=== PATIENT | female | born 1955 | race Caucasian/White ===

== ENCOUNTER 2024-02-18 11:02 | Inpatient (IN) | payer MEDICARE ==
[~2024-02-18] VITALS: Ht 167.6 cm; Wt 60.4 kg
[~2024-02-18 11:02] MED LIST: ALBUTEROL0.63 MG/3 NEB; AMLODIPINE BESY10 MG PO; ATENOLOL50 MG PO; ONDANSETRON ODT8 MG PO; VENLAFAXINE HCL75 MG PO
[2024-02-18 11:43] LABS: BASOPHILS % 0.3 % (0.0-1.0); EOSINOPHILS # (AUTO) 0.1 (0.0-0.4); EOSINOPHILS % 1.1 % (0.0-6.0); HEMATOCRIT 50.7 % (34.2-44.1); HEMOGLOBIN 16.4 g/dL (12.0-16.0); LYMPHOCYTES # (AUTO) 0.9 (1.0-3.2); LYMPHOCYTES % 11.4 % (18.0-39.1); MEAN CORPUSCULAR HEMOGLOBIN 30.4 pg (28-32); MEAN CORPUSCULAR HGB CONC 32.3 g/dL (31-35); MEAN CORPUSCULAR VOLUME 94.1 fL (81-99); MONOCYTES # (AUTO) 0.5 (0.2-0.8); MONOCYTES % 6.4 % (4.4-11.3); NEUTROPHILS # (AUTO) 6.1 (2.1-6.9); NEUTROPHILS % 80.4 % (38.7-80.0); PLATELET COUNT 152 x10e3/uL (140-360); RED BLOOD COUNT 5.39 x10e6/uL (3.6-5.1); RED CELL DISTRIBUTION WIDTH 14.5 % (11.7-14.4); WHITE BLOOD COUNT 7.52 x10e3/uL (4.8-10.8)
[2024-02-18] MEDS ORDERED: FENTANYL CITRATE/PF 100MCG/2 ML INJ ONE (11:47)
[2024-02-18 12:14] LABS: ANION GAP 17.3 mmol/L (8-16); CALCIUM 9.6 mg/dL (8.4-10.2); CREATININE, SERUM 0.98 mg/dL (0.57-1.11)
[2024-02-18 12:17] LABS: POTASSIUM 3.3 mmol/L (3.5-5.1)
[2024-02-18] MEDS ORDERED: SEVOFLURANE INHAL SOLN 250 ML PEN BTL ONE (12:20)
[2024-02-18] MEDS ORDERED: EPINEPHRINE HCL 1:1000 1ML 1 MG/ML AMP ONE (12:20)
[2024-02-18] MEDS ORDERED: ONDANSETRON HCL INJ 2MG/ML 2ML 2 MG/ML VIAL ONE (12:20)
[2024-02-18] MEDS ORDERED: EPHEDRINE SULFATE INJ 50 MG/ML VIAL ONE (12:20)
[2024-02-18] MEDS ORDERED: ALBUTEROL 90 MCG/ACT INHALER INH ONE (12:20)
[2024-02-18] MEDS ORDERED: PROPOFOL IV EMULSION 10 MG/ML 20 ML VIAL ONE ×2 (12:20→13:24)
[2024-02-18] MEDS ORDERED: DEXAMETHASONE SOD PHOS INJ 4 MG/ML SDV ONE (12:20)
[2024-02-18] MEDS ORDERED: LIDOCAINE HCL 2% LOCAL INJ 5 ML SDV VIAL INJ ONE (12:20)
[2024-02-18] MEDS: CEFAZOLIN SODIUM 2 GM ONE (12:31)
[2024-02-18] MEDS ORDERED: BUPIVACAINE HCL 0.5% INJ 30 ML VIAL INJ ONE (13:21)
[2024-02-18] MEDS ORDERED: HEPARIN SOD (PORCINE) 1000 UNIT/ML SDV ONE (13:21)
[2024-02-18] MEDS ORDERED: SODIUM CHLORIDE 0.9% 100 ML ONE (13:21)
[2024-02-18] MEDS ORDERED: KETAMINE HCL INJ 50 MG/ML 10 ML VIAL ONE (13:24)
[2024-02-18] MEDS ORDERED: ULTRAM 50MG50 MG PO (14:43)
[2024-02-18] MEDS: FENTANYL CITRATE/PF 100MCG/2 ML INJ ONE (15:53)
[2024-02-18] MEDS ORDERED: ALBUTEROL SULF 0.083% NEB SOLN 3 ML NEB NEB PRN (16:45)
[2024-02-18] MEDS ORDERED: ONDANSETRON HCL 4 MG ORAL DISINTEGRATING TAB PO SCH (16:45)
[2024-02-18] MEDS: TRAMADOL HCL 50 MG TAB PO SCH (17:30)
[2024-02-18 19:30] VITALS: BP 148/82; PULSE 91; RESP 12; TEMP 98; O2SAT 97
[2024-02-18 19:50] VITALS: BP 148/82; PULSE 91; RESP 12; TEMP 98; O2SAT 97
[2024-02-18 20:00] VITALS: BP 148/82; PULSE 91; RESP 12; TEMP 98; O2SAT 97
[2024-02-18] MEDS ORDERED: HYDRALAZINE HCL 20 MG/ML VIAL IV PRN (22:30)
[2024-02-18] MEDS ORDERED: ONDANSETRON HCL INJ 2MG/ML 2ML 2 MG/ML VIAL IV PRN (22:30)
[2024-02-18] MEDS ORDERED: DOCUSATE SODIUM 100 MG CAP PO PRN (22:30)
[2024-02-18] MEDS ORDERED: MAGNESIUM/ALUMINUM/SIMETHICONE 30 ML UDC PO PRN (22:30)
[2024-02-19] VITALS (12 sets, daily range): BP systolic 119–151; BP diastolic 67–96; PULSE 75–96; RESP 16–19; TEMP 97.6–98.3; O2SAT 92–100
[2024-02-19] MEDS: POTASSIUM CHLORIDE 20 MEQ TAB CR PO STA (01:21)
[2024-02-19] MEDS: MAGNESIUM OXIDE 400 MG TAB PO ONE (01:21)
[2024-02-19] MEDS: ATENOLOL 50 MG TAB PO ONE (01:22)
[2024-02-19] MEDS: METHYLPREDNISOLONE SOD SUCC 40 MG/ML VIAL 1ML IV ONE (01:22)
[2024-02-19 07:03] LABS: MAGNESIUM 2.3 MG/DL (1.3-2.1)
[2024-02-19 07:24] LABS: THYROID STIMULATING HORMONE 30.846 uIU/mL (0.350-4.940)
[2024-02-19] MEDS: MULTIVITAMINS/MINERALS TAB PO SCH (09:33)
[2024-02-19] MEDS: VENLAFAXINE HCL 75 MG TAB PO SCH (09:33)
[2024-02-19] MEDS: AMLODIPINE BESYLATE 10 MG TAB PO SCH (09:34)
[2024-02-19] MEDS: ATENOLOL 50 MG TAB PO SCH (09:35)
[2024-02-19] MEDS: IPRATROPIUM BROMIDE 0.02% 2.5 ML NEB NEB SCH (09:52)
[2024-02-19] MEDS ORDERED: SODIUM CHLORIDE 0.9% 100 ML ONE (13:07)
[2024-02-19] MEDS ORDERED: IOPAMIDOL 370 MG/ML 100 ML INFUS..BTL INJ ONE (13:08)
[2024-02-19] MEDS: ALBUTEROL SULF 0.083% NEB SOLN 3 ML NEB NEB PRN (19:35)
[2024-02-20] VITALS (11 sets, daily range): BP systolic 109–143; BP diastolic 74–86; PULSE 74–93; RESP 16–20; TEMP 97.6–98.2; O2SAT 97–100
[2024-02-20] MEDS: ACETAMINOPHEN 325 MG TAB PO PRN (05:14)
[2024-02-20 06:13] LABS: T3 UPTAKE 24.42 % (22.5-37.0); THYROID STIMULATING HORMONE 65.177 uIU/mL (0.350-4.940)
[2024-02-20 06:17] LABS: FREE THYROXINE INDEX 0.2222195 (1.4-3.8); T4 (THYROXINE) < 0.91 ug/dL (4.5-10.9)
[2024-02-20] MEDS: LACTULOSE SYRUP 20 GM/30 ML UDC PO ONE (16:36)
[2024-02-20] MEDS: DOCUSATE SODIUM 100 MG CAP PO SCH (16:36)
[2024-02-20] MEDS: FUROSEMIDE INJ 10 MG/ML 4 ML VIAL IV ONE (16:36)
[2024-02-20] MEDS: LEVOTHYROXINE SODIUM 75 MCG TAB PO ONE (16:39)
[2024-02-21] VITALS (11 sets, daily range): BP systolic 91–139; BP diastolic 64–87; PULSE 61–104; RESP 16–20; TEMP 97.9–98.1; O2SAT 97–100
[2024-02-21] MEDS: TRAMADOL HCL 50 MG TAB PO PRN (03:51)
[2024-02-21] MEDS: LEVOTHYROXINE SODIUM 75 MCG TAB PO SCH (03:51)
[2024-02-21 08:30] LABS: INR 0.93; PROTHROMBIN TIME 12.9 seconds (11.9-14.5)
[2024-02-21 12:52] LABS: BODY FLUID COLOR YELLOW
[2024-02-21 12:53] LABS: BODY FLUID APPEARANCE CLOUDY; BODY FLUID TYPE PLEURAL; RBC,BODY FLUID < 2000 cells/uL; WBC,BODY FLUID 157 cells/uL
[2024-02-21 13:14] LABS: LYMPHOCYTES,BODY FLUID 72 %; MONO/MACROPHG,BODY FLUID 11 %; NEUTROPHILS,BODY FLUID 8 %; OTHER CELLS,BODY FLUID 9 %; TOTAL CELLS COUNTED (DIFF) 100
[2024-02-22] VITALS (13 sets, daily range): BP systolic 127–147; BP diastolic 74–97; PULSE 75–102; RESP 16–21; TEMP 97.8–98.3; O2SAT 95–100
[2024-02-22] MEDS: MELATONIN 3 MG TAB PO PRN (00:12)
[2024-02-22] MEDS: GUAIFENESIN/DEXTROMETHORPHAN LIQD 5 ML UDC PO PRN (00:12)
[2024-02-22 06:25] LABS: TOTAL PROTEIN 6.6 g/dL (6.5-8.1)
[2024-02-23] VITALS (11 sets, daily range): BP systolic 107–146; BP diastolic 70–93; PULSE 79–116; RESP 16–20; TEMP 97.8–98.6; O2SAT 97–100
[2024-02-23] MEDS: SODIUM CHLORIDE 0.9% 250ML 250 ML IV ONE (11:47)
[2024-02-23] MEDS ORDERED: PROPOFOL IV EMULSION 50 ML IV ONE (14:30)
[2024-02-23] MEDS ORDERED: EPINEPHRINE HCL 1:1000 1ML 1 MG/ML AMP ONE (16:56)
[2024-02-23] MEDS: ALBUTEROL/IPRATROPIUM 3 ML NEB ONE (17:03)
[2024-02-23] MEDS: METOPROLOL TARTRATE INJ 1 MG/ML VIAL ONE (20:12)
[2024-02-23] MEDS: AMIODARONE HCL 200 MG TAB PO SCH (22:06)
[2024-02-23] MEDS: ATENOLOL 50 MG TAB PO ONE (22:07)
[2024-02-24] VITALS (8 sets, daily range): BP systolic 121–128; BP diastolic 74–88; PULSE 73–98; RESP 16–20; TEMP 97.5–98.2; O2SAT 96–100
[2024-02-24 06:51] LABS: TOTAL PROTEIN,BODY FLUID 3.9 g/dL
[2024-02-24] MEDS: ATENOLOL 50 MG TAB PO SCH (08:53)
[2024-02-24] MEDS: LACTULOSE SYRUP 20 GM/30 ML UDC PO PRN (08:57)
[2024-02-24] MEDS ORDERED: AMIODARONE HCL200 MG PO (11:59)
[2024-02-24] MEDS ORDERED: ELIQUIS2.5 MG PO (11:59)
[2024-02-24] MEDS ORDERED: ATENOLOL50 MG PO (12:00)
[2024-02-24] MEDS ORDERED: ONDANSETRON HCL 4 MG ORAL DISINTEGRATING TAB PO PRN (14:30)
[2024-02-24] MEDS ORDERED: LEVOTHYROXINE75 MCG PO (17:51)
== END 2024-02-24 14:15 | disposition home health service (06) | DRG 167 ==
LOC: OR 11:02 → MED/SURG2 17:05 → OBSVTOIN 02-20 16:12
PROVIDERS: ADMIT Surgery; ATTEND Surgery
PROC: 02HV33Z Insertion of Infusion Device into Superior Vena Cava, Percutaneous Approach (ICD-10-PCS; 2024-02-18)
PROC: 0JH60WZ Insertion of Totally Implantable Vascular Access Device into Chest Subcutaneous Tissue and Fascia, Open Approach (ICD-10-PCS; principal; 2024-02-18 13:29)
PROC: 07B60ZX Excision of Left Axillary Lymphatic, Open Approach, Diagnostic (ICD-10-PCS; 2024-02-18 13:29)
PROC: 0W993ZZ Drainage of Right Pleural Cavity, Percutaneous Approach (ICD-10-PCS; 2024-02-21)
PROC: 0DB68ZX Excision of Stomach, Via Natural or Artificial Opening Endoscopic, Diagnostic (ICD-10-PCS; 2024-02-23)
PROC: 0DB78ZX Excision of Stomach, Pylorus, Via Natural or Artificial Opening Endoscopic, Diagnostic (ICD-10-PCS; 2024-02-23)
PROC: 0D738ZZ Dilation of Lower Esophagus, Via Natural or Artificial Opening Endoscopic (ICD-10-PCS; 2024-02-23)
DX: J95.1 Acute pulmonary insufficiency following thoracic surgery (principal); C77.3 Secondary and unspecified malignant neoplasm of axilla and upper limb lymph nodes; J81.1 Chronic pulmonary edema; I31.39 Other pericardial effusion (noninflammatory); J90 Pleural effusion, not elsewhere classified; J96.11 Chronic respiratory failure with hypoxia; I10 Essential (primary) hypertension; K21.9 Gastro-esophageal reflux disease without esophagitis; I48.0 Paroxysmal atrial fibrillation; G62.0 Drug-induced polyneuropathy; R26.81 Unsteadiness on feet; R13.19 Other dysphagia; E03.9 Hypothyroidism, unspecified; J43.9 Emphysema, unspecified; K44.9 Diaphragmatic hernia without obstruction or gangrene; K29.70 Gastritis, unspecified, without bleeding; Z85.3 Personal history of malignant neoplasm of breast; Z92.3 Personal history of irradiation; Z92.21 Personal history of antineoplastic chemotherapy; Z90.11 Acquired absence of right breast and nipple; Z87.891 Personal history of nicotine dependence; Z88.0 Allergy status to penicillin
CPT/HCPCS: 32555; 36415; 43239; 43450; 70360; 71045; 71046; 71260; 74230; 76000; 80048; 82945; 83615; 83735; 84132; 84155; 84157; 84436; 84443; 84479; 85025; 85610; 87070; 87205; 88112; 88305; 88342; 89051; 93005; 94640; 94799; C1729; C1751; G0378; J0171; J0690; J1100; J1644; J1940; J2003; J2405; J2919; J7050; Q9967